=== PATIENT | female | born 1955 | race Caucasian/White ===

== ENCOUNTER 2021-02-12 07:20 | Emergency (ER) | payer OTHER ==
[~2021-02-12] VITALS: Ht 167.6 cm; Wt 75.5 kg
[2021-02-12] MEDS ORDERED: areds (07:36)
[2021-02-12] MEDS ORDERED: AMLODIPINE BESYL5 MG PO (07:36)
[2021-02-12] MEDS ORDERED: METHOCARBAMOL750 MG PO (07:36)
[2021-02-12] MEDS ORDERED: MAGNESIUM OXID400 MG PO (07:36)
[2021-02-12] MEDS ORDERED: ESTRADIOL1 MG PO (07:36)
[2021-02-12] MEDS ORDERED: ASPIRIN325 MG PO (07:36)
[2021-02-12] MEDS ORDERED: POTASSIUM CITR10 MEQ PO (07:36)
[2021-02-12] MEDS ORDERED: NEURONTIN300 MG PO (07:36)
[2021-02-12] MEDS ORDERED: VITAMIN D350 MCG (07:36)
[2021-02-12] MEDS ORDERED: ACETAMINOPHEN500 MG PO (07:38)
[2021-02-12] MEDS ORDERED: ULTRAM 50MG50 MG PO (08:09)
[2021-02-12] MEDS ORDERED: ONDANSETRON HCL 4 MG ORAL DISINTEGRATING TAB PO ONE (08:15)
[2021-02-12] MEDS ORDERED: IBUPROFEN 600 MG TAB PO ONE (08:15)
[2021-02-12] MEDS ORDERED: HYDROCODONE/APAP 5MG-325MG TAB PO ONE (08:15)
[2021-02-12] MEDS ORDERED: ONDANSETRON HCL 4 MG ORAL DISINTEGRATING TAB ONE (08:20)
[2021-02-12] MEDS ORDERED: IBUPROFEN 600 MG TAB ONE (08:20)
[2021-02-12] MEDS ORDERED: HYDROCODONE/APAP 5MG-325MG TAB ONE (08:20)
== END 2021-02-12 08:24 | disposition home or self-care (01) ==
LOC: FSED 07:23
DX: S92.511A Displaced fracture of proximal phalanx of right lesser toe(s), initial encounter for closed fracture (principal); W22.03XA Walked into furniture, initial encounter; Y93.01 Activity, walking, marching and hiking; Y92.008 Other place in unspecified non-institutional (private) residence as the place of occurrence of the external cause
CPT/HCPCS: 28515; 73660; 99283; Q0162